=== PATIENT | male | born 1955 | race Caucasian/White ===

== ENCOUNTER 2018-10-06 13:27 | Emergency (ER) | payer BC ==
--- NOTE | 2018-10-06 12:38 | CT ---
EXAMINATION TYPE: CT abdomen wo con DATE OF EXAM: 10/06/2018 COMPARISON: None available at the time of dictation HISTORY: 63-year-old male RUQ pain for 6 days. History of pancreatitis. TECHNIQUE: Contiguous axial scanning of the abdomen without IV contrast. Coronal and sagittal reconst ructions performed. CT DLP: 361 mGycm Automated exposure control for dose reduction was used. FINDINGS: Heart normal size without pericardial effusion. Tiny hiatal hernia. Lung bases clear without pleural effusion. Noncontrast appearance of the liver shows a couple areas of subcentimeter hypodensity that is axial i mage 21 and 22, too small for accurate CT characterization, probable cysts. Some layering tiny calculi or gravel within the gallbladder. No abnormal gallbladder distention. Adrenal glands, right kidney, spleen, and pancreas appear within normal limits by noncontrast pharmacy picking tech nique. There is a very large cyst involving the upper pole of the left kidney measuring 8.7 cm on coronal se chu. No dilated small bowel, free fluid, or free air. No mesenteric or retroperitoneal lymphadenopathy. There is moderate stool. Mild diverticular change along the lower descending and visualized proximal sigmoid colon. Normal appendix. Some minimal pericolonic fat stranding along the lower descending col on but without abnormal colonic wall thickening. The pelvis is not included in the imaging. Bones: There is L5 bilateral pars defects with grade 1 anterolisthesis at L5-S1 and hypertrophic face t arthropathy lower lumbar spine. IMPRESSION: 1. MILD DIVERTICULOSIS ALONG THE LOWER DESCENDING AND PROXIMAL SIGMOID COLON. THERE IS SOME PERICOLON IC FAT STRANDING IN THIS LOCATION THAT COULD REPRESENT PROMINENT PERICOLONIC VESSELS VERSUS MILD ACUT E DIVERTICULITIS. LIKELY CORRELATE. NO ABSCESS OR FREE AIR. 2. LARGE CYST INVOLVING THE UPPER POLE OF THE LEFT KIDNEY MEASURING 8.7 CM. CORRELATE TO IF MASS E FFECT FROM THIS CYST MAY BE CONTRIBUTING TO THE PATIENT'S SYMPTOMS. 3. LAYERING TINY GALLSTONES/GRAVEL. 4. MODERATE STOOL BURDEN. 5. BILATERAL L5 PARS DEFECTS WITH GRADE 1 ANTEROLISTHESIS AT L5-S1.
== END 2018-10-06 13:54 | disposition home or self-care (01) ==
LOC: EC 13:27
DX: R10.84 Generalized abdominal pain (principal); Z53.8 Procedure and treatment not carried out for other reasons
CPT/HCPCS: 74150; 99499

== ENCOUNTER 2018-12-07 19:40 | Emergency (ER) | payer BC ==
[2018-12-07] MEDS ORDERED: SODIUM CHLORIDE 0.9% 500 ML 500 ML IV STA (19:54)
[2018-12-07 20:04] LABS: Glucose,Whole Blood 118 mg/dL (75-99)
--- NOTE | 2018-12-07 20:10 | ED ---
Weakness HPI - General Chief complaint: Weakness Stated complaint: weakness Time Seen by Provider: 12/07/18 19:54 Source: patient Mode of arrival: ambulatory Limitations: no limitations - History of Present Illness Initial comments: 63-year-old male with hypothyroidism presenting today for evaluation of generalized weakness, insomnia. Patient states that he had a cholecystectomy performed on Saturday at the [facility] he states this was performed at that hospital because he had ongoing bouts of pancreatitis and establish care at the facility. He states that he had an outpatient study performed by his surgeon at [facility] who recommended removal of the gallbladder. Patient had the procedure performed on Saturday without complications performed laparoscopically. Patient states he feels the pain has been consistent with post surgical status denies any increased pain however he states that he feels he has ALLERGIC reaction to the oxycodone from the codeine he states he is unable to sleep when he takes the medications he is unable to sleep and hassnt for the past 3 nights, and he was told he should not take his lorazepam, he takes for a sleep aid and anxiety. Patient states today he became very anxious he thought she was having a panic attack tingling all over, and felt SOB for a few moments, in addition he states he has been weak all over as well--he verbalizes that he feels this has been due to lack of sleep and "just needs something to relax". Patient denies fevers, increasing abdominal pain. Patient denies diarrhea, vomiting. Patient denies chest pain, or chest pressure. Denies calf pain or swelling of the LE. Denies hemoptysis. Patient states he has not been eating or drinking very much. Remaining ROS (-) Upon arrival patient appears well there is no signs of acute distress. - Related Data Allergies Allergy/AdvReac Type Severity Reaction Status Date / Time No Known Allergies Allergy Verified 12/07/18 19:50 Review of Systems ROS Statement: Those systems with pertinent positive or pertinent negative responses have been documented in the HPI. ROS Other: All systems not noted in ROS Statement are negative. Past Medical History Past Medical History: No Reported History Additional Past Medical History / Comment(s): hypothyroidism History of Any Multi-Drug Resistant Organisms: None Reported Past Surgical History: Cholecystectomy Past Psychological History: No Psychological Hx Reported Smoking Status: Never smoker Past Alcohol Use History: None Reported Past Drug Use History: None Reported General Exam - General Exam Comments Initial Comments: General: The patient is awake and alert, in no distress, and does not appear acutely ill. Eye: Pupils are equal, round and reactive to light, extra-ocular movements are intact. No nystagmus. There is normal conjunctiva bilaterally. No signs of icterus. Ears, nose, mouth and throat: There are moist mucous membranes and no oral lesions. Neck: The neck is supple, there is no tenderness or JVD. Cardiovascular: There is a regular rate and rhythm. No murmur, rub or gallop is appreciated. Respiratory: Lungs are clear to auscultation, respirations are non-labored, breath sounds are equal. No wheezes, stridor, rales, or rhonchi. Gastrointestinal: Soft, non-distended, mild tenderness to palpation over surgical sites of abdomen to light palpation, no out of proportion pain noted, the abdomen without masses or organomegaly noted. There is no rebound or guarding present. No CVA tenderness. Bowel sounds are unremarkable. Noted incisions covered with topical glue, no drainage or erythema. Slightly bruising in umbilical incision. Musculoskeletal: Normal ROM, no tenderness. Strength 5/5. Sensation intact. Radial pulses equal bilaterally 2+. Neurological: A&O x 3. CN II-XII intact grossly, There are no obvious motor or sensory deficits. Coordination appears grossly intact. Speech is normal. Skin: Skin is warm and dry and no rashes or lesions are noted. (-) Homans b/l. No swelling of the LE b/l. No pain to palpation of the calves b/l. Psychiatric: Cooperative, appropriate mood & affect, normal judgment. Limitations: no limitations Course Vital Signs 12/07/18 19:47 Temperature 97.7 F Pulse Rate 78 Respiratory 16 Rate Blood Pressure 193/91 O2 Sat by Pulse 99 Oximetry EKG Findings - EKG Comments: EKG Findings:: Ventricular rate 74 bpm, PA interval 128 ms, QRS uatsdin 84 ms, QT/QTC 392/435. This is normal sinus with noted atrial enlargement. No ST elevation or depression. Nonspecific T-wave. Artifact noted. EKG is personal interpreted and reviewed by my attending provider Dr. Delvalle Medical Decision Making - Medical Decision Making Very well-appearing 63-year-old male status post cholecystectomy 12/05/2018 present for evaluation of generalized weakness. Patient states he had episode where he felt as though he is having a panic attack, patient states she has been discontinued from his lorazepam and hasn't slept in 4 days he states he felt this was the cause. Patient requesting medication as he was told to discontinue it because of his oxycodone was prescribed for pain management patient states pain has been consistent since surgery but does not feel out of proportion. Patient's incisions do not appear infected. No out of proportion pain of abdominal exam. Patient given lorazepam, states he feels so much better and is ready to go home this is prior to laboratory results. I recommended completion of care. Patient laboratory studies appear descended with recent surgery. No leukocytosis. Dimer .52. Patient denies chest pain, states he has not had SOB since his panic attack, no clinical signs of DVT, no tachycardia or hypoxia. Patient requesting discharge. After discussing the case with DR. Delvalle he is agreeable with discharge home, return parameters and PCP/surgical f/u. Return parameters were discussed at length and patient verbalized understanding discharge appearing well - Lab Data Result diagrams: 12/07/18 21:20 12/07/18 21:20 Lab Results 12/07/18 12/07/18 12/07/18 Range/Units 19:59 21:20 21:20 WBC 10.0 (3.8-10.6) k/uL RBC 5.80 (4.30-5.90) m/uL Hgb 17.6 H (13.0-17.5) gm/dL Hct 51.6 (39.0-53.0) % MCV 89.0 (80.0-100.0) fL MCH 30.4 (25.0-35.0) pg MCHC 34.2 (31.0-37.0) g/dL RDW 13.0 (11.5-15.5) % Plt Count 288 (150-450) k/uL Neutrophils % 79 % Lymphocytes % 14 % Monocytes % 5 % Eosinophils % 1 % Basophils % 0 % Neutrophils # 7.9 H (1.3-7.7) k/uL Lymphocytes # 1.4 (1.0-4.8) k/uL Monocytes # 0.5 (0-1.0) k/uL Eosinophils # 0.1 (0-0.7) k/uL Basophils # 0.0 (0-0.2) k/uL PT (9.0-12.0) sec INR (<1.2) APTT (22.0-30.0) sec D-Dimer (<0.60) mg/L FEU Sodium 141 (137-145) mmol/L Potassium 4.2 (3.5-5.1) mmol/L Chloride 102 (98-107) mmol/L Carbon Dioxide 26 (22-30) mmol/L Anion Gap 13 mmol/L BUN 17 (9-20) mg/dL Creatinine 1.00 (0.66-1.25) mg/dL Est GFR (CKD-EPI)AfAm >90 (>60 ml/min/1.73 sqM) Est GFR (CKD-EPI)NonAf 80 (>60 ml/min/1.73 sqM) Glucose 107 H (74-99) mg/dL POC Glucose (mg/dL) 118 H (75-99) mg/dL POC Glu Forgeman Helper ID Nusrat Hernandez Plasma Lactic Acid Drew (0.7-2.0) mmol/L Calcium 10.0 (8.4-10.2) mg/dL Magnesium 2.1 (1.6-2.3) mg/dL Total Bilirubin 0.8 (0.2-1.3) mg/dL AST 62 H (17-59) U/L ALT 207 H (21-72) U/L Alkaline Phosphatase 106 (38-126) U/L Troponin I (0.000-0.034) ng/mL Total Protein 8.5 H (6.3-8.2) g/dL Albumin 5.1 H (3.5-5.0) g/dL Urine Color Urine Appearance (Clear) Urine pH (5.0-8.0) Ur Specific [place] (1.001-1.035) Urine Protein (Negative) Urine Glucose (UA) (Negative) Urine Ketones (Negative) Urine Blood (Negative) Urine Nitrite (Negative) Urine Bilirubin (Negative) Urine Urobilinogen (<2.0) mg/dL Ur Leukocyte Esterase (Negative) Urine RBC (0-5) /hpf Urine WBC (0-5) /hpf Urine Mucus (None) /hpf 12/07/18 12/07/18 12/07/18 Range/Units 21:20 21:20 21:20 WBC (3.8-10.6) k/uL RBC (4.30-5.90) m/uL Hgb (13.0-17.5) gm/dL Hct (39.0-53.0) % MCV (80.0-100.0) fL MCH (25.0-35.0) pg MCHC (31.0-37.0) g/dL RDW (11.5-15.5) % Plt Count (150-450) k/uL Neutrophils % % Lymphocytes % % Monocytes % % Eosinophils % % Basophils % % Neutrophils # (1.3-7.7) k/uL Lymphocytes # (1.0-4.8) k/uL Monocytes # (0-1.0) k/uL Eosinophils # (0-0.7) k/uL Basophils # (0-0.2) k/uL PT 10.1 (9.0-12.0) sec INR 0.9 (<1.2) APTT 24.9 (22.0-30.0) sec D-Dimer 0.52 (<0.60) mg/L FEU Sodium (137-145) mmol/L Potassium (3.5-5.1) mmol/L Chloride (98-107) mmol/L Carbon Dioxide (22-30) mmol/L Anion Gap mmol/L BUN (9-20) mg/dL Creatinine (0.66-1.25) mg/dL Est GFR (CKD-EPI)AfAm (>60 ml/min/1.73 sqM) Est GFR (CKD-EPI)NonAf (>60 ml/min/1.73 sqM) Glucose (74-99) mg/dL POC Glucose (mg/dL) (75-99) mg/dL POC Glu Forgeman Helper ID Plasma Lactic Acid Drew 1.5 (0.7-2.0) mmol/L Calcium (8.4-10.2) mg/dL Magnesium (1.6-2.3) mg/dL Total Bilirubin (0.2-1.3) mg/dL AST (17-59) U/L ALT (21-72) U/L Alkaline Phosphatase (38-126) U/L Troponin I <0.012 (0.000-0.034) ng/mL Total Protein (6.3-8.2) g/dL Albumin (3.5-5.0) g/dL Urine Color Urine Appearance (Clear) Urine pH (5.0-8.0) Ur Specific [place] (1.001-1.035) Urine Protein (Negative) Urine Glucose (UA) (Negative) Urine Ketones (Negative) Urine Blood (Negative) Urine Nitrite (Negative) Urine Bilirubin (Negative) Urine Urobilinogen (<2.0) mg/dL Ur Leukocyte Esterase (Negative) Urine RBC (0-5) /hpf Urine WBC (0-5) /hpf Urine Mucus (None) /hpf 12/07/18 Range/Units 21:20 WBC (3.8-10.6) k/uL RBC (4.30-5.90) m/uL Hgb (13.0-17.5) gm/dL Hct (39.0-53.0) % MCV (80.0-100.0) fL MCH (25.0-35.0) pg MCHC (31.0-37.0) g/dL RDW (11.5-15.5) % Plt Count (150-450) k/uL Neutrophils % % Lymphocytes % % Monocytes % % Eosinophils % % Basophils % % Neutrophils # (1.3-7.7) k/uL Lymphocytes # (1.0-4.8) k/uL Monocytes # (0-1.0) k/uL Eosinophils # (0-0.7) k/uL Basophils # (0-0.2) k/uL PT (9.0-12.0) sec INR (<1.2) APTT (22.0-30.0) sec D-Dimer (<0.60) mg/L FEU Sodium (137-145) mmol/L Potassium (3.5-5.1) mmol/L Chloride (98-107) mmol/L Carbon Dioxide (22-30) mmol/L Anion Gap mmol/L BUN (9-20) mg/dL Creatinine (0.66-1.25) mg/dL Est GFR (CKD-EPI)AfAm (>60 ml/min/1.73 sqM) Est GFR (CKD-EPI)NonAf (>60 ml/min/1.73 sqM) Glucose (74-99) mg/dL POC Glucose (mg/dL) (75-99) mg/dL POC Glu Forgeman Helper ID Plasma Lactic Acid Drew (0.7-2.0) mmol/L Calcium (8.4-10.2) mg/dL Magnesium (1.6-2.3) mg/dL Total Bilirubin (0.2-1.3) mg/dL AST (17-59) U/L ALT (21-72) U/L Alkaline Phosphatase (38-126) U/L Troponin I (0.000-0.034) ng/mL Total Protein (6.3-8.2) g/dL Albumin (3.5-5.0) g/dL Urine Color Light Yellow Urine Appearance Clear (Clear) Urine pH 7.5 (5.0-8.0) Ur Specific [place] 1.008 (1.001-1.035) Urine Protein Negative (Negative) Urine Glucose (UA) Negative (Negative) Urine Ketones Negative (Negative) Urine Blood Small H (Negative) Urine Nitrite Negative (Negative) Urine Bilirubin Negative (Negative) Urine Urobilinogen <2.0 (<2.0) mg/dL Ur Leukocyte Esterase Negative (Negative) Urine RBC 12 H (0-5) /hpf Urine WBC 2 (0-5) /hpf Urine Mucus Rare H (None) /hpf Disposition Clinical Impression: Generalized weakness, Insomnia, Anxiety Disposition: HOME SELF-CARE Condition: Good Additional Instructions: Please use medication as discussed. Please follow-up with family doctor in the next 2 days. Please return to emergency room if the symptoms increase or worsen or for any other concerns. Is patient prescribed a controlled substance at d/c from ED?: No Referrals: Wero Wang DO [Primary Care Provider] - 1-2 days Time of Disposition: 22:40
[2018-12-07] MEDS ORDERED: LORazepam 1 MG TAB PO STA (20:22)
[2018-12-07] MEDS ORDERED: HYDROmorphone 0.5 MG/0.5 ML SYRINGE IVP STA (20:22)
[2018-12-07 21:42] LABS: Basophils % (A) 0 %; Eosinophils # (A) 0.1 k/uL (0-0.7); Eosinophils % (A) 1 %; HCT 51.6 % (39.0-53.0); HGB 17.6 gm/dL (13.0-17.5); Lymphocytes # (A) 1.4 k/uL (1.0-4.8); Lymphocytes % (A) 14 %; MCH 30.4 pg (25.0-35.0); MCHC 34.2 g/dL (31.0-37.0); Mean Platelet Volume 6.5; Monocytes # (A) 0.5 k/uL (0-1.0); Monocytes % (A) 5 %; Neutrophils # (A) 7.9 k/uL (1.3-7.7); Neutrophils % (A) 79 %; Platelet Count 288 k/uL (150-450)
[2018-12-07 21:48] LABS: Appearance,Urine Clear (Clear); Bilirubin,Urine Negative (Negative); Blood,Urine Small (Negative); Color,Urine Light Yellow; Glucose,Urine (UA) Negative (Negative); Ketones,Urine Negative (Negative); Leukocyte Esterase,Urine Negative (Negative); Mucus,Urine Rare /hpf; Nitrite,Urine Negative (Negative); PH, Urine 7.5 (5.0-8.0); Protein,Urine Negative (Negative); RBC,Urine 12 /hpf (0-5); Specific Gravity,Urine 1.008 (1.001-1.035); Urobilinogen,Urine <2.0 mg/dL (<2.0); WBC,Urine 2 /hpf (0-5)
--- NOTE | 2018-12-07 21:51 | XR ---
EXAMINATION TYPE: XR chest 2V DATE OF EXAM: 12/07/2018 COMPARISON: 07/16/2011 HISTORY: Weakness TECHNIQUE: Frontal and lateral views of the chest are obtained. FINDINGS: There is no heart failure nor confluent pneumonic infiltrate. Heart size is normal. There are chest leads. Costophrenic angles are clear. IMPRESSION: No active cardiopulmonary disease. Normal heart. No change.
[2018-12-07 21:55] LABS: ALT 207 U/L (21-72); AST 62 U/L (17-59); African American GFR (CKD) >90 (>60 ml/min/1.73 sqM); Albumin 5.1 g/dL (3.5-5.0); Alkaline Phosphatase 106 U/L (38-126); Anion Gap 13 mmol/L; Blood Urea Nitrogen 17 mg/dL (9-20); Carbon Dioxide 26 mmol/L (22-30); Chloride 102 mmol/L (98-107); D-Dimer 0.52 mg/L FEU (<0.60); Glucose 107 mg/dL (74-99); INR 0.9 (<1.2); Magnesium 2.1 mg/dL (1.6-2.3); Partial Thromboplastin Time 24.9 sec (22.0-30.0); Potassium 4.2 mmol/L (3.5-5.1); Prothrombin Time 10.1 sec (9.0-12.0); Sodium 141 mmol/L (137-145); Total Bilirubin 0.8 mg/dL (0.2-1.3); Total Protein 8.5 g/dL (6.3-8.2)
[2018-12-08 08:58] VITALS: BP 153/89; PULSE 60; RESP 17; TEMP 98.2
== END 2018-12-07 23:38 | disposition home or self-care (01) ==
LOC: EC 19:40
DX: R53.1 Weakness (principal); F41.9 Anxiety disorder, unspecified; G47.00 Insomnia, unspecified; Z90.49 Acquired absence of other specified parts of digestive tract; Z88.5 Allergy status to narcotic agent
CPT/HCPCS: 36415; 93005; 85379; 80053; 83605; 83735; 84484; 85025; 85610; 85730; 81001; 87040; 71046; 99285; 96374; 96361; J1170

== ENCOUNTER → 2019-09-08 | Outpatient (CLI) | payer BC | END | disposition home or self-care (01) | LOC: LABWHC1 06:58 | PROVIDERS: ATTEND Family Medicine | DX: Z20.828 Contact with and (suspected) exposure to other viral communicable diseases (principal) ==

== ENCOUNTER → 2023-10-17 | Outpatient (CLI) | payer MEDICARE ==
--- NOTE | 2023-10-19 11:27 | CA ---
Transthoracic Echo Report Name: Jose Allan Age: 68 Gender: M : 1955 Exam Date: 10/17/2023 15:03 Exam Location: [facility] Ht (in): 72 Wt (lb): 165 Ordering Physician: Wero Wang DO Attending/Referring Phys: Legal Mediator Daphnie Coombs RDCS Procedure CPT: Indications: r42 vertigo Cardiac Hx: Technical Quality: Fair Contrast 1: Total Dose (mL): Contrast 2: Total Dose (mL): MEASUREMENTS (Male / Female) Normal Values 2D ECHO LV Diastolic Volume MOD BP 58.5 cm??? 67 - 155 / 56 - 104 cm??? LV Systolic Volume MOD BP 22.6 cm??? 22 - 58 / 19 - 49 cm??? LV Ejection Fraction MOD BP 61.4 % >= 55 % LV Cardiac Index MOD BP 1142.7 cm???/min???m??? LV Diastolic Volume MOD 4C 59.2 cm??? LV Systolic Volume MOD 4C 23.4 cm??? LV Ejection Fraction MOD 4C 60.4 % LV Cardiac Index MOD 4C 1138.4 cm???/min???m??? LV Diastolic Length 4C 7.1 cm LV Systolic Length 4C 5.9 cm LV Diastolic Volume MOD 2C 54.3 cm??? LV Systolic Volume MOD 2C 21.1 cm??? LV Ejection Fraction MOD 2C 61.1 % LV Cardiac Index MOD 2C 1057.3 cm???/min???m??? LV Diastolic Length 2C 6.5 cm LV Systolic Length 2C 6.2 cm M-MODE Aortic Root Diameter MM 3.6 cm LA Systolic Diameter MM 3.6 cm LA Ao Ratio MM 1.0 AV Cusp Separation MM 2.0 cm DOPPLER Mitral E Point Velocity 67.4 cm/s Mitral A Point Velocity 72.1 cm/s Mitral E to A Ratio 0.9 MV Deceleration Time 325.0 ms MV E' Velocity 9.1 cm/s Mitral E to MV E' Ratio 7.4 TR Peak Velocity 225.2 cm/s TR Peak Gradient 20.3 mmHg FINDINGS Left Ventricle Left ventricular ejection fraction is estimated at 55-60%. Normal left ventricular systolic function with no obvious regional wall motion abnormalities. Left ventricular cavity size normal. Right Ventricle Normal right ventricular size and function. Right ventricular systolic pressure within normal limits. Right Atrium Mild right atrial dilatation. Left Atrium Mild left atrial dilatation. Mitral Valve Structurally normal mitral valve. Trace mitral regurgitation. No mitral stenosis. Aortic Valve Trileaflet aortic valve. No aortic valve stenosis or regurgitation. Tricuspid Valve Structurally normal tricuspid valve. Trace tricuspid regurgitation. No tricuspid stenosis. Pulmonic Valve Structurally normal pulmonic valve. Trace pulmonic regurgitation. No pulmonic stenosis. Pericardium No pericardial or pleural effusion. Aorta Normal size aortic root and proximal ascending aorta. CONCLUSIONS Diagnosis: Presyncope/dizziness Normal LV size and function Normal RV size and function Biatrial enlargement Previewed by: Dr Uche Smith (Electronically Signed) Final Date: 19 October 2023 11:26
== END | disposition home or self-care (01) ==
LOC: RADECHMAIN 14:45
PROVIDERS: ATTEND Family Medicine
DX: I51.7 Cardiomegaly (principal); R42 Dizziness and giddiness
CPT/HCPCS: 93306

== ENCOUNTER → 2023-10-21 | Outpatient (CLI) | payer MEDICARE ==
--- NOTE | 2023-11-16 07:53 | CT ---
EXAMINATION TYPE: CT brain wo/w con DATE OF EXAM: 10/21/2023 COMPARISON: No comparison available on downtime PACS. INDICATION: Vertigo DLP: 2351 mGycm, Automated exposure control for dose reduction was used. CONTRAST: 100 mL Isovue-300 CT of the brain is performed utilizing 3 mm thick sections through the posterior fossa and 3 mm thick sections through the remaining calvarium. Study is performed within 24 hours of arrival to the [facility]. No abnormal hyperdensity is present to suggest an acute intracranial hemorrhage. No mass lesion is evident. No acute infarcts are evident. Ventricles and sulci are appropriate for the patient age. Paranasal sinuses and mastoid air cells within the [id number] are clear. No abnormal enhancement is evident. IMPRESSION: 1. No acute intracranial process pre- or post contrast. Follow up MRI can be performed as clinically indicated.
== END | disposition home or self-care (01) ==
LOC: RADCTMAIN 12:40
PROVIDERS: ATTEND Family Medicine
DX: R42 Dizziness and giddiness (principal)
CPT/HCPCS: 82565; 84520; 70470; 36415; Q9967

== ENCOUNTER → 2023-10-29 | Outpatient (CLI) | payer MEDICARE | END | disposition home or self-care (01) | LOC: RADNMMAIN 08:45 | PROVIDERS: ATTEND Family Medicine | DX: R42 Dizziness and giddiness (principal) | CPT/HCPCS: 93017 ==

== ENCOUNTER → 2024-05-26 | Outpatient (CLI) | payer MEDICARE ==
--- NOTE | 2024-05-26 12:52 | XR ---
EXAMINATION TYPE: XR chest 2V DATE OF EXAM: 05/26/2024 CLINICAL INDICATION: Male, 69 years old with history of COUGH SOB, TECHNIQUE: Frontal and lateral views of the chest are obtained. COMPARISON: Chest x-ray December 07, 2018 FINDINGS: There is no focal air space opacity, pleural effusion, or pneumothorax seen. The cardiac silhouette size is stable and within normal limits. The osseous structures are intact. IMPRESSION: No acute pulmonary process. No significant change from prior. [facility], , 05/26/2024 12:50 PM
== END | disposition home or self-care (01) ==
LOC: RADXRMAIN 12:32
PROVIDERS: ATTEND Family Medicine
DX: R05.9 Cough, unspecified (principal); R06.02 Shortness of breath
CPT/HCPCS: 71046